=== PATIENT | male | born 1945 | race Two or more races ===

== ENCOUNTER 2017-02-28 09:56 | Day surgery (SDC) | payer OTHER ==
[~2017-02-28] VITALS: Ht 160 cm; Wt 86.7 kg
[2017-02-28] VITALS (11 sets, daily range): BP systolic 120–144; BP diastolic 75–94; PULSE 90–97; RESP 12–26; Ht 160 cm; Wt 86.7 kg
[~2017-02-28 09:56] MED LIST: PROPOFOL 200 MG INJ ONE
--- NOTE | 2017-02-28 10:00 | HPN ---
Date/Time of Note Date/Time of Note DATE: 02/28/17 TIME: 09:59 Interval H&P Admission Note Pt. seen H&P reviewed: No system changes KAREN ALVAREZ MD Feb 28, 2017 10:00
[2017-02-28] MEDS ORDERED: AMLO5TAB4 PO (10:11)
[2017-02-28] MEDS ORDERED: LOSA50TA6 PO (10:11)
[2017-02-28] MEDS ORDERED: PRAV40TA76 PO (10:12)
[2017-02-28] MEDS ORDERED: LIDOCAINE 1%/EPI 30 ML INJ ONE (10:14)
[2017-02-28] MEDS ORDERED: BACITRACIN/POLYMYXIN 28.35 GM OINT TOP ONE (10:14)
[2017-02-28] MEDS ORDERED: BUPIVACAINE 0.5%/EPI (SDV) 30 ML INJ ONE (10:14)
[2017-02-28] MEDS ORDERED: FENTAnyl 50 MCG/ML VIAL ONE (10:58)
[2017-02-28] MEDS ORDERED: MIDAZOLAM 1 MG/ML 2 ML INJ ONE (10:58)
[2017-02-28] MEDS ORDERED: CEFAZOLIN 1 GM INJ ONE (10:59)
[2017-02-28] MEDS ORDERED: HYDROCODONE/APAP (5/325) TAB PO PRN (11:00)
[2017-02-28] MEDS ORDERED: ONDANSETRON 4 MG INJ IV PRN (11:00)
--- NOTE | 2017-02-28 11:01 | OPR ---
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 The risks, benefits, alternatives of performing this procedure were discussed with the patient including the risks of bleeding, infection, wound healing problems, distortion of surrounding structures, nerve damage, changes in sensation, need for revision , and the patient states that they understand these risks and would like to proceed with the procedure. All questions were answered, no guarantees were given with regards to the outcome of this procedure. Description of procedure: The patient was brought to the operating room at [facility] where sedation was induced. The circumference of the lesion was marked with a marking pen. The skin was prepped with alcohol and then a total of 3cc of 1% lidocaine with 1:100,000 epi were injected. Next , the patient was prepped and draped in usual sterile fashion. The 15 blade was then used to excise around the circumference of the lesion. This was sent for pathology. A short stitch was placed superior and long stitch was placed lateral. Pathology returned negative. Size of the specimen was 3.5cm. The wound was inspected, and in order to close without tension and avoid distorting the surrounding structures, an inferiorly based cheek advancement flap was planned. This was marked with the marking pen. The flap was then incised with a 15 blade, and was undermined sharply with the scissors. It was then advanced into position. It sat in place without undue tension. Therefore hemostasis was achieved with electrocautery, and then the incision was closed with 5-0 vicryl suture and 5-0 nylon suture. The final size of the flap was 3.5x3cm. 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
[2017-02-28] MEDS ORDERED: LIDOCAINE 2% (SDV) 5 ML INJ ONE (11:03)
[2017-02-28] MEDS ORDERED: SOD CHLORIDE 0.9% 1,000 ML IV SCH (13:00)
== END 2017-02-28 13:35 | disposition home or self-care (01) ==
LOC: SDS 09:56
PROVIDERS: ATTEND Surgery Plastic and Reconstructive Surgery
DX: C44.112 Basal cell carcinoma of skin of right eyelid, including canthus (principal); I10 Essential (primary) hypertension; E78.5 Hyperlipidemia, unspecified
CPT/HCPCS: 14060; 88305; 88331; J2250; J3010; J0690